=== PATIENT | male | born 1990 | race Caucasian/White ===

== ENCOUNTER 2017-03-09 09:50 | Emergency (ER) | payer OTHER ==
[~2017-03-09] VITALS: Ht 175.3 cm; Wt 99.0 kg
[2017-03-09 09:53] VITALS: BP 143/82; PULSE 83; TEMP 36.7; O2SAT 97; Ht 175.3 cm; Wt 99.0 kg
[2017-03-09] MEDS ORDERED: KETOROLAC TROMETHAMINE 60 MG/2 ML VIAL IM STA (09:59)
--- NOTE | 2017-03-09 10:24 | DIAGNOSTIC IMAGING REPORT ---
RIGHT SHOULDER MIN 2 VIEWS ROUTINE CLINICAL HISTORY: shoulder pain Right pain COMPARISON: None. DISCUSSION: The bones and joint spaces appear intact. There is no evidence of fracture, dislocation or bony disease. There is no evidence for soft tissue swelling. IMPRESSION: Negative study. Electronically signed by: Kevin Levin M.D. 03/09/2017 10:23 AM Dictated Date/Time: 03/09/2017 10:21 AM
--- NOTE | 2017-03-09 10:34 | EMERGENCY ROOM VISIT NOTE ---
ED Visit Note First contact with patient: 09:52 CHIEF COMPLAINT: Right shoulder pain HISTORY OF PRESENT ILLNESS: This 26-year-old prisoner presents the ED today for right shoulder pain. The patient states yesterday he was doing a lot of pushups and sit-ups but was not in any immediately pain after the exercises. Then last night he woke up in the middle of the night with right shoulder pain. He states he has some numbness in his third through fifth fingers. The patient states it hurts with all movement. He denies any prior injury to his right shoulder. The patient denies any neck pain or wrist pain. He states he applied ice and was placed in a sling but he has not had any relief. He states this actually made her feel worse. The patient is right-hand dominant. REVIEW OF SYSTEMS: 6 system review was performed and was negative unless stated otherwise in history of present illness. PMH: The patient is healthy; there is no significant medical or surgical history. SOCIAL HISTORY: Patient is currently incarcerated. The patient denies any tobacco use but does admit to occasional alcohol use PHYSICAL EXAM: Vital Signs: Were reviewed Reviewed nurse's notes. GEN.: 26-year -old white female appears uncomfortable secondary to pain. RIGHT shoulder: The shoulder is not swollen or deformed on inspection. The range of motion is limited in all directions because of the pain. There is no tenderness of the distal clavicle. No eccymosis seen. The patient has tenderness over the entire humeral head. 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 EMERGENCY DEPARTMENT COURSE: The patient was evaluated. The patient was given Toradol 60 mg IM. X-ray of the right shoulder was ordered and interpreted by the radiologist and myself. DIAGNOSTICS:RIGHT SHOULDER MIN 2 VIEWS ROUTINE CLINICAL HISTORY: shoulder pain Right pain COMPARISON: None. DISCUSSION: The bones and joint spaces appear intact. There is no evidence of fracture, dislocation or bony disease. There is no evidence for soft tissue swelling. IMPRESSION: Negative study. Electronically signed by: Kevin Levin M.D. 03/09/2017 10:23 AM Dictated Date/Time: 03/09/2017 10:21 AM The patient was informed of the findings. The patient has a sling at the residential. He was instructed to put it back on it since he gets back. The patient was discharged home in stable condition. DIAGNOSIS: Right shoulder strain DISCHARGE INSTRUCTIONS & TREATMENT: Rest the arm in a sling until the pain subsides. Do not do any strenuous exercise which her upper body for 2 weeks. Apply ice to the shoulder intermittently and frequently over the next 24 hours. Take Voltaren as prescribed. May also take Tylenol as needed for additional pain relief. If symptoms are not improving in 3-4 days, recommend follow-up with orthopedics. Vital Signs Date Time Temp Pulse Resp B/P (MAP) Pulse Ox O2 Delivery O2 Flow Rate FiO2 03/09/17 09:53 36.7 83 20 143/82 97 Room Air Medications Administered Medications (Trade) Dose Ordered Sig/Jimmy Route Start Time Stop Time Status Last Admin Dose Admin Ketorolac Tromethamine (Toradol Inj) 60 mg NOW STAT IM 03/09/17 09:59 03/09/17 10:00 DC 03/09/17 10:23 60 MG Departure Information Referrals Amelia UFNEZ (PCP) Patient Instructions My [facility]
[2017-03-09] MEDS ORDERED: DICL75TA2 PO (10:36)
== END 2017-03-09 10:41 | disposition home or self-care (01) ==
LOC: C.EDB 09:52 → C.EDA 10:41
DX: S46.911A Strain of unspecified muscle, fascia and tendon at shoulder and upper arm level, right arm, initial encounter (principal); X58.XXXA Exposure to other specified factors, initial encounter